=== PATIENT | male | born 1995 | race African-American/Black ===

== ENCOUNTER 2017-01-14 14:32 | Emergency (ER) | payer MEDICAID ==
[2014-04-28 07:06] VITALS: BMI 24.5
[~2017-01-14 14:32] MED LIST: HYDROCODONE-APA1 TAB PO; PROPRANOLOL HCL20 MG PO
== END 2017-01-14 17:14 | disposition left against medical advice (07) ==
LOC: D.ER 14:32
DX: S69.91XA Unspecified injury of right wrist, hand and finger(s), initial encounter (principal)

== ENCOUNTER 2017-03-19 07:44 | Emergency (ER) | payer MEDICAID ==
[2014-04-28 07:06] VITALS: BMI 24.5
== END 2017-03-19 09:00 | disposition home or self-care (01) ==
LOC: D.ER 07:44
DX: N48.1 Balanitis (principal)

== ENCOUNTER 2017-05-17 18:08 | Emergency (ER) | payer SELFPAY ==
[2014-04-28 07:06] VITALS: BMI 24.5
== END 2017-05-17 20:30 | disposition home or self-care (01) ==
LOC: D.ER 18:08
DX: S46.911A Strain of unspecified muscle, fascia and tendon at shoulder and upper arm level, right arm, initial encounter (principal); W20.8XXA Other cause of strike by thrown, projected or falling object, initial encounter; Y93.89 Activity, other specified; Y92.89 Other specified places as the place of occurrence of the external cause; J45.909 Unspecified asthma, uncomplicated

== ENCOUNTER 2017-07-02 22:54 | Emergency (ER) | payer SELFPAY ==
[2014-04-28 07:06] VITALS: BMI 24.5
== END 2017-07-02 23:43 | disposition home or self-care (01) ==
LOC: D.ER 22:54
DX: A60.01 Herpesviral infection of penis (principal)